=== PATIENT | male | born 1945 | race African-American/Black ===

== ENCOUNTER → 2018-07-20 | Outpatient (CLI) | payer MEDICARE, OTHER ==
[~2018-07-20] MED LIST: ALEN70TA6 PO; ALLO300T PO; ASPI-482 PO; ATEN25TA PO; DASA100T PO; ESOM40CA PO; FEXO30OR PO; OXYC1TAB15 PO; PRED-220 PO; PROM118S5 PO; TEMA15CA6 PO
[2018-07-20 16:14] LABS: CHOLESTEROL/HDL RATIO 2.1
--- NOTE | 2018-07-20 16:22 | RAD ---
MR#: [id number] Date of Study: 07/20/2018 Ordering Physician: CARYN RONDON, Referring Physician: CARYN RONDON, Tech: James Gordillo MBA, RDMS, RVT, RDCS, RTR APPROVED REPORT Patient Location: OUT-PATIENT Laterality:Bilateral Indications PAD Doppler Spectral Velocity Analysis Right Left pCCA 77/9 cm/spCCA 147/13 cm/s mCCA 72/9 cm/smCCA 95/13 cm/s dCCA 59/9 cm/sdCCA 84/9 cm/s Bulb 48/10 cm/sBulb 74/13 cm/s ECA 111/ cm/sECA 118/ cm/s pICA 51/9 cm/spICA 100/20 cm/s Holli 50/10 cm/smICA 127/32 cm/s dICA 57/10 cm/sdICA 131/31 cm/s Vert. 130/ cm/sVert. 22/ cm/s Subcl. 115/ cm/sSubcl. 201/ cm/s ICA/CCA 0.74ICA/CCA 0.89 Findings Grayscale images of the bilateral common carotid, external and internal carotid vessels reveals mild intimal hyperplasia with mild nonobstructive plaque in the internal carotid vessels. Spectral waveforms on the right side are grossly within normal limits overall suggestive 0 to less th an 50% stenosis. Normal ICA to CCA ratios noted. Vertebral velocities are mildly elevated on the righ t side but otherwise are antegrade. On the left there are mildly elevated velocities in the common carotid artery but this most likely is related to tortuosity. The distal internal carotid artery demonstrates velocities that are slightly elevated but owing to areas of measurement this is again overall consistent with 0 to less than 50% s tenosis. Normal ICA to CCA ratios are noted. The left vertebral velocity is significantly diminished but antegrade, suggestive either of occlusion or degenerative congenitally. Critical Notification Critical Value: No <Conclusion> No significant bilateral carotid occlusive disease. Signed by : Caryn Rondon, Electronically Approved : 07/20/2018 16:21:55
--- NOTE | 2018-07-20 16:24 | RAD ---
MR#: [id number] Date of Study: 07/20/2018 Ordering Physician: CARYN RONDON, Referring Physician: CARYN RONDON, Tech: James Gordillo MBA, RDMS, RVT, RDCS, RTR APPROVED REPORT Patient Location: OUT-PATIENT Indications PAD VELOCITY AND DOPPLER WAVEFORM ANALYSIS RIGHT cm/secWaveformSeverity LEFT cm/secWaveform Severity dCFA 145.0TriphasicdCFA 180.0Biphasic Prof Fem Art. 75.0BiphasicProf Fem Art. 52.0Biphasic Fem Art Prox. 116.0TriphasicFem Art Prox. 153.0Biphasic Fem Art Mid. 111.0TriphasicFem Art Mid. 90.0Biphasic Fem Art Dist. 89.0TriphasicFem Art Dist. 96.0Biphasic Pop Art(Fossa) 59.0TriphasicPop Art(AK) 87.0Triphasic SENIOR ATTORNEY Prox. 64.0MonophasicPTA Prox. 121.0Monophasic SENIOR ATTORNEY Dist. 76.0MonophasicPTA Dist. 75.0Monophasic Per Art Mid. 102.0MonophasicPer Art Mid. 43.0Monophasic BRENDA Prox. 81.0BiphasicATA Prox. 64.0Monophasic DPA 40MonophasicDPA 41Monophasic Image Findings Grayscale images of the bilateral lower extremity arterial vessels demonstrate mild diffuse atheroscl erotic plaque. Spectral waveforms and color Doppler of the lower extremity is are mostly biphasic and monophasic in nature. Velocities are within normal limits. This is likely consistent overall with diffuse adventiti al calcification without any focal intraluminal stenosis. There is three-vessel runoff below the knee bilaterally. Critical Notification Critical Value: No <Conclusion> No significant lower extremity intraluminal arterial stenosis noted. Signed by : Caryn Rondon, Electronically Approved : 07/20/2018 16:24:07
== END | disposition home or self-care (01) ==
LOC: US 14:43
PROVIDERS: ATTEND Internal Medicine Cardiovascular Disease
DX: I73.9 Peripheral vascular disease, unspecified (principal); I10 Essential (primary) hypertension; I65.23 Occlusion and stenosis of bilateral carotid arteries
CPT/HCPCS: 36415; 80061; 83721; 93880; 93925

== ENCOUNTER → 2018-11-17 | Outpatient (CLI) | payer MEDICARE, OTHER ==
--- NOTE | 2018-11-17 16:00 | KCIC ---
LUMBAR SPINE WO CONTRAST Date: 11/17/2018 9:30 AM Indication: Chronic low back pain with radiculopathy Comparison: None. Technique: Multi-planar multi-weighted magnetic resonance imaging of the lumbar spine was performed without intravenous contrast using the standard lumbar spine protocol. FINDINGS: The lumbar spine is normally aligned. No acute fracture. Moderate multilevel degenerative disc desiccation and disc height loss. Degenerative endplate edema at L5-S1. Multiple Schmorl's nodes. The conus terminates at a normal level. No abnormal signal is seen within the visualized distal spinal cord. No clumping of intrathecal nerve roots. Left renal cysts. T12-L1: No disc bulge. No facet arthropathy. No significant spinal stenosis or neural foraminal narrowing. L1-L2: No disc bulge. No facet arthropathy. No significant spinal stenosis or neural foraminal narrowing. L2-L3: Mild disc bulge. No facet arthropathy. No significant spinal stenosis or neural foraminal narrowing. L3-L4: Disc bulge. Mild facet arthropathy. No significant spinal stenosis or neural foraminal narrowing. L4-L5: Disc bulge. Mild facet arthropathy. No significant spinal stenosis. Mild bilateral neural foraminal narrowing. L5-S1: Disc bulge. Mild right and moderate left facet arthropathy. No significant spinal stenosis. Mild bilateral neural foraminal narrowing. IMPRESSION: Lumbar spondylosis, detailed level by level above. No high-grade spinal canal narrowing. Electronically signed by: Aram Quijano MD (11/17/2018 3:57 PM) [id number]
== END | disposition home or self-care (01) ==
LOC: KCIC MRI 09:21
PROVIDERS: ATTEND Nurse Practitioner Family
DX: M47.26 Other spondylosis with radiculopathy, lumbar region (principal); M48.07 Spinal stenosis, lumbosacral region; M46.86 Other specified inflammatory spondylopathies, lumbar region; M51.46 Schmorl's nodes, lumbar region; N28.1 Cyst of kidney, acquired; G89.29 Other chronic pain
CPT/HCPCS: 72148